=== PATIENT | female | born 1945 | race Caucasian/White ===

== ENCOUNTER → 2016-04-25 | Outpatient (CLI) | payer OTHER ==
--- NOTE | ~2016-04-25 | MY11 ---
[facility] A Service [facility] RADIOLOGY TEXT RESULTS PATIENT: ALICIA GENAO LOCATION: [facility] : 43 UNIT #: [id number] AGE: [address]: Tangela Avalos SEX: F ORDER DR: [id number] [facility] [address] [place], [place] [address] [id number] O MR#: [id number] Acc #: [id number] NAME: ALICIA GENAO : 1945 SEX: F STUDY DATE/TIME: 04/25/2016 11:58 UNIT: [facility] ROOM: STUDY DESCRIPTION: MY Mammogram Screening Dig Alex Attending Physician: Tangela Avalos A.P.R.N. Ordering Physician: Tangela Avalos A.P.R.N. Primary Care Physician: Tangela Avalos A.P.R.N. MEDICAL IMAGING REPORT This report is preliminary unless electronic signature is present EXAM Bilateral Digital Screening Mammogram with CAD INDICATION Breast cancer screening. 71-year-old asymptomatic female reports a sister with premenopausal breast cancer. COMPARISON January 02, 2015 April 11, 2013 April 05, 2010 July 29, 2008 April 21, 2016 February 27, 2004. FINDINGS There are scattered fibroglandular tissues. No suspicious findings are present. IMPRESSION No mammographic evidence of malignancy. Annual screening mammography and clinical breast exam are recommended. A result letter will be sent to the patient. Patients over the age of 40 are entered into a reminder system with target due date for the next mammogram. BIRADS: 1 Negative Dictated by... Martin Ulloa M.D. THIS IS AN ELECTRONICALLY VERIFIED REPORT Martin Ulloa M.D. at 04/27/2016 7:04 PM [facility] A Service [facility] RADIOLOGY TEXT RESULTS PATIENT: ALICIA GENAO LOCATION: [facility] : 43 UNIT #: [id number] AGE: [address]: Tangela Avalos SEX: F ORDER DR: EVIN/mimi TD: 04/26/2016 05:05 JOB #: [id number] MEDICAL IMAGING REPORT COPY
== END | disposition home or self-care (01) ==
LOC: CWCC 11:10
DX: Z12.31 Encounter for screening mammogram for malignant neoplasm of breast (principal); Z80.3 Family history of malignant neoplasm of breast
CPT/HCPCS: G0202